=== PATIENT | female | born 1955 | race Caucasian/White ===

== ENCOUNTER 2016-10-27 15:43 | Emergency (ER) | payer MEDICARE ==
[~2016-10-27] VITALS: Ht 142.2 cm; Wt 39.1 kg
[2016-10-27 15:46] VITALS: TEMP 98.1
[2016-10-27] MEDS ORDERED: PREDNISONE 5MG5 MG PO (16:05)
[2016-10-27] MEDS ORDERED: MORPHINE 1515 MG/TAB PO (16:05)
[2016-10-27] MEDS ORDERED: DILANTIN 100MG100 MG PO (16:06)
[2016-10-27] MEDS ORDERED: VENTOLIN0.09 MG IH (16:06)
[2016-10-27] MEDS ORDERED: NORCO 325 MG-51 TAB PO (16:43)
[2016-10-27 18:07] LABS: PH 5 (5-8); SQUAMOUS EPITHELIAL 0-2 /hpf; URINE APPEARANCE Hazy; URINE BACTERIA Rare /hpf; URINE BILIRUBIN Negative (NEGATIVE); URINE BLOOD 3+ (NEGATIVE); URINE COLOR Yellow; URINE GLUCOSE Negative (NEGATIVE); URINE KETONE Negative (NEGATIVE); URINE UROBILINOGEN Negative (NEGATIVE)
[2016-10-27 18:13] VITALS: BP 146/79; PULSE 94
== END 2016-10-27 18:13 | disposition home or self-care (01) ==
LOC: COL.ER 15:43
PROVIDERS: Family Medicine
DX: M54.5 Low back pain (principal); S39.012A Strain of muscle, fascia and tendon of lower back, initial encounter; X50.1XXA Overexertion from prolonged static or awkward postures, initial encounter; X50.9XXA Other and unspecified overexertion or strenuous movements or postures, initial encounter; Y92.009 Unspecified place in unspecified non-institutional (private) residence as the place of occurrence of the external cause; M81.0 Age-related osteoporosis without current pathological fracture; J44.9 Chronic obstructive pulmonary disease, unspecified; R91.8 Other nonspecific abnormal finding of lung field; Z87.891 Personal history of nicotine dependence

== ENCOUNTER 2017-05-09 17:40 | Emergency (ER) | payer MEDICARE ==
[~2017-05-09] VITALS: Ht 142.2 cm; Wt 39.1 kg
[~2017-05-09 17:40] MED LIST: DILANTIN 100MG100 MG PO; MORPHINE 1515 MG/TAB PO; NORCO 325 MG-51 TAB PO; PREDNISONE 5MG5 MG PO; VENTOLIN0.09 MG IH
[2017-05-09 17:43] VITALS: TEMP 99.1
[2017-05-09 18:36] LABS: ADJUSTED CALCIUM 9.3 mg/dL (8.4-10.2); ALANINE AMINOTRANSFERASE 25 U/L (9-52); ALBUMIN 4.2 gm/dL (3.5-5.0); ALKALINE PHOSPHATASE 85 U/L (50-136); ANION GAP 10 mmol/L (7-16); BILIRUBIN,TOTAL 0.6 mg/dL (0.0-1.0); BLOOD UREA NITROGEN 12 mg/dL (7-17); CALCIUM 9.5 mg/dL (8.4-10.2); CARBON DIOXIDE 24 mmol/L (22-30); CHLORIDE 102 mmol/L (98-107); GLUCOSE 77 mg/dL (74-106); POTASSIUM 4.5 mmol/L (3.4-5.0); SODIUM 136 mmol/L (137-145); TOTAL PROTEIN 7.4 gm/dL (6.4-8.2)
[2017-05-09 18:40] LABS: BASO % 0.5 % (0.0-2.0); EOS % 0.4 % (0-4.0); GRAN % 62.4 % (42.2-75.2); HEMATOCRIT 41.7 % (37.0-47.0); HEMOGLOBIN 14.2 g/dl (12.5-16.0); LYMPH # 2.5 (1.2-3.4); LYMPH % 31.8 % (20.0-51.0); MEAN CELL VOLUME 92 fl (80.0-100.0); MEAN CORPUSCULAR HEMOGLOBIN 31 pg (27.0-31.0); MEAN CORPUSCULAR HGB CONC 34 g/dl (33.0-37.0); MEAN PLATELET VOLUME 8.8 fl (7.4-10.4); MONO # 0.4 (0.1-0.6); MONO % 4.6 % (1.7-9.3); PLATELET COUNT 241 K/mm3 (130-400); RED BLOOD COUNT 4.55 M/mm3 (4.10-5.30); REDCELL DISTRIBUTION WIDTH-CV 14.7 % (11.5-14.5)
[2017-05-09 18:49] LABS: PARTIAL THROMBOPLASTIN TIME 29.9 SECONDS (26.0-37.0)
[2017-05-09 18:52] LABS: TROPONIN-I < 0.012 ng/mL (0.000-0.034)
[2017-05-09 19:02] LABS: PROTHROMBIN TIME 11.1 SECONDS (9.7-12.8)
[2017-05-09] MEDS ORDERED: NORCO 325 MG-51 TAB PO (19:40)
[2017-05-09] MEDS ORDERED: PREDNISONE20 MG PO (19:40)
[2017-05-09 19:57] VITALS: BP 116/71; PULSE 87
== END 2017-05-09 19:57 | disposition home or self-care (01) ==
LOC: COL.ER 17:40
PROVIDERS: Emergency Medicine
DX: R07.9 Chest pain, unspecified (principal); M54.14 Radiculopathy, thoracic region; J44.9 Chronic obstructive pulmonary disease, unspecified; G40.909 Epilepsy, unspecified, not intractable, without status epilepticus; M81.0 Age-related osteoporosis without current pathological fracture; Z86.73 Personal history of transient ischemic attack (TIA), and cerebral infarction without residual deficits; F17.200 Nicotine dependence, unspecified, uncomplicated
CPT/HCPCS: J7512; Q9967

== ENCOUNTER 2018-12-05 01:06 | Inpatient (IN) | payer MEDICARE ==
[2018-12-05] VITALS (12 sets, daily range): BP systolic 102–155; BP diastolic 48–77; PULSE 76–98; TEMP 97.2–99.1
[~2018-12-05] VITALS: Ht 142.2 cm; Wt 41.6 kg
[~2018-12-05 01:06] MED LIST changes: +PREDNISONE20 MG PO
[2018-12-05 06:17] LABS: BASO # 0.1 (0.0-0.2); BASO % 0.5 % (0.0-2.0); EOS % 0.3 % (0-4.0); GRAN # 7.2 (1.4-6.5); GRAN % 72.5 % (42.2-75.2); HEMOGLOBIN 10.9 g/dl (12.5-16.0); INR 1.1 (0.8-3.0); LYMPH % 20.3 % (20.0-51.0); MEAN CELL VOLUME 94 fl (80.0-100.0); MEAN CORPUSCULAR HEMOGLOBIN 31 pg (27.0-31.0); MEAN CORPUSCULAR HGB CONC 33 g/dl (33.0-37.0); MEAN PLATELET VOLUME 9.4 fl (7.4-10.4); MONO # 0.6 (0.1-0.6); MONO % 5.9 % (1.7-9.3); PLATELET COUNT 200 K/mm3 (130-400); PROTHROMBIN TIME 12.3 SECONDS (9.7-12.8); RED BLOOD COUNT 3.52 M/mm3 (4.10-5.30); REDCELL DISTRIBUTION WIDTH-CV 15.1 % (11.5-14.5)
[2018-12-05 06:23] LABS: BILIRUBIN,TOTAL 0.5 mg/dL (0.0-1.0); CALCIUM 7.4 mg/dL (8.4-10.2); CREATININE, serum 0.63 mg/dL (0.52-1.25); POTASSIUM 4.3 mmol/L (3.4-5.0); TOTAL PROTEIN 5.8 gm/dL (6.4-8.2)
[2018-12-05 06:30] LABS: PRE ALBUMIN 20.2 mg/dL (17.6-36.0)
--- NOTE | 2018-12-05 06:55 | NUR ---
Patient report given to ENEIDA Vanegas. Patient received IV morphine around 0640. Patient continues to refuse getting a catheter place at this time. No needs observed.
--- NOTE | 2018-12-05 07:40 | NUR ---
Patient IV swollen upon assessment at shift change. New IV started in Right forearm, fluids infusing.
--- NOTE | 2018-12-05 09:18 | NUR ---
Patient is off the floor for surgery. LR hanging to straight tubing. Telemetry ordered but did not place it before going down, notified the tele desk that she is going to surgery. Patient refused to use the bedpan or get a vu catheter placed. Unable to get UA due to that. Ortho and Hospitalist aware. Patient also refused to get cleaned up before surgery, she wouldn't brush her teeth either. Attempted several times, SHAKE CUTTER tried as well. Morphine given this am, she stated it is not helping and continues to rate her pain 10 on a 0-10 scale. No other changes at this time. Call light within reach.
[2018-12-05 11:46] LABS: COLLECTION METHOD CLEAN CATCH
[2018-12-05 12:00] LABS: MUCOUS Present /lpf; PH 5 (5-8); SQUAMOUS EPITHELIAL None Seen /hpf; URINE APPEARANCE Clear; URINE BACTERIA Rare /hpf; URINE BILIRUBIN Negative (NEGATIVE); URINE BLOOD 3+ (NEGATIVE); URINE COLOR Yellow; URINE GLUCOSE Negative (NEGATIVE); URINE KETONE Negative (NEGATIVE); URINE LEUKOCYTE ESTERASE Negative (NEGATIVE); URINE NITRATE Negative (NEGATIVE); URINE PROTEIN(semi-quant) Negative (NEGATIVE); URINE RBC 20-50 /hpf; URINE UROBILINOGEN Negative (NEGATIVE)
[2018-12-05 13:18] LABS: COLLECTION METHOD CATHETER
--- NOTE | 2018-12-05 13:32 | NUR ---
Patient is back from surgery. Has been back since about 1245. She continues to state she is having pain but she is very drowsy and can not stay awake to have a conversation. She removed her oxygen and her oxygen dropped down to 78%. Explained to patient and her family how important it is to keep the oxygen on. Oxygen replaced, saturation is now 93% on 2L/min per NC. Her family is at bedside. Explained importance of her keeping the oxygen on to them and her. No other changes at this time. Call light within reach.
[2018-12-05 13:43] LABS: MUCOUS Present /lpf; PH 5 (5-8); SQUAMOUS EPITHELIAL 0-2 /hpf; URINE APPEARANCE Clear; URINE BACTERIA Rare /hpf; URINE BILIRUBIN Negative (NEGATIVE); URINE BLOOD 3+ (NEGATIVE); URINE COLOR Yellow; URINE GLUCOSE Negative (NEGATIVE); URINE KETONE Negative (NEGATIVE); URINE LEUKOCYTE ESTERASE Negative (NEGATIVE); URINE NITRATE Negative (NEGATIVE); URINE PROTEIN(semi-quant) Negative (NEGATIVE); URINE RBC 20-50 /hpf; URINE UROBILINOGEN Negative (NEGATIVE)
--- NOTE | 2018-12-05 15:49 | NUR ---
Attempted assessment patient very sleepy. Will try again.
--- NOTE | 2018-12-05 16:00 | NUR ---
Patient stated having a lot of pain in her neck. She is still a little drowsy but wakes easily. She was rating her pain at 8 on a 0-10 scale. Gunpowder given for pain. No complaints of nausea. Dressing to right hip is C/D/I. She is refusing ice packs. Vital signs are stable. No other changes at this time. Call light within reach.
[2018-12-05] MEDS ORDERED: CARAFATE 1GM1 G PO (17:11)
--- NOTE | 2018-12-05 18:37 | NUR ---
Patient has been sleeping off and on since getting back from surgery. Her main complaint is of a headache. Explained she had norco which also has tylenol in it and that it should be helping. No other changes at this time. Call light within reach.
[2018-12-06] VITALS (9 sets, daily range): BP systolic 82–112; BP diastolic 48–58; PULSE 82–98; TEMP 97.6–98.9
--- NOTE | 2018-12-06 06:19 | NUR ---
RESTING QUIETLY. NO c/o N/V. NORCO FOR RLE PAIN. PT REFUSING ICE. PT RESISTANT TO ANY MOVEMENT. RLE HAS BEEN ELEVATED ALL NIGHT.
[2018-12-06 06:33] LABS: HEMATOCRIT 29.2 % (37.0-47.0)
[2018-12-06 06:43] LABS: CALCIUM 7.1 mg/dL (8.4-10.2); CREATININE, serum 0.44 mg/dL (0.52-1.25); POTASSIUM 3.7 mmol/L (3.4-5.0)
--- NOTE | 2018-12-06 09:03 | NUR ---
Patient alert and oriented, answers questions appropriately. See assessment. RLE with dressing clean, dry and intact. RLE pulses palpable, neuros intact. Patient refuses any movement of entire body, states "I will hurt if I move". Also refuses IS and CDB. SCDs on but refuses motor to be turned on. Encouraged all post op exercises to be performed. Patient currently has no pain but is fearful of any movement. No other c/o at this time.
--- NOTE | 2018-12-06 11:22 | NUR ---
Patient has refused CDB and IS all morning.
[2018-12-06 13:46] LABS: INR 1.1 (0.8-3.0); PROTHROMBIN TIME 12.3 SECONDS (9.7-12.8)
--- NOTE | 2018-12-06 15:40 | NUR ---
KENDRA and KENDRA student met with patient to discuss discharge planning. Patient lives in [place]. Her PCP is dr Dallas out of [place] and she obtains her medications from [facility]. KENDRA discussed rehab options with patient. She is interested in longterm but would like to talk to her daughters. She would like to be in [place]. KENDRA discussed the hospital swing bed vs [facility]. KENDRA asked if patient would have transport to the hosptial and she reports she has no one that could take her. She would still like to call her daughters. KENDRA and KENDRA student followed up with patient. SHe reports she has talked to her youngest daughter but not the oldest. She is leaning towards [facility] [place]. KENDRA will follow up again and discussed this with nurse.
--- NOTE | 2018-12-06 21:48 | NUR ---
BP rechecked after 1 norco. BP improved 101/48. Second tab norco given. Will continue to assess.
--- NOTE | 2018-12-06 21:52 | NUR ---
Shift assessment complete. Patient awake, in bed. C/o 8/10 pain, generalized. One tab norco given d/t BP 98/53. Will reassess BP before giving 2nd tab. Patient ok with plan. Will continue to monitor.
[2018-12-07] VITALS (7 sets, daily range): BP systolic 85–119; BP diastolic 37–52; PULSE 82–108; TEMP 97.9–100.2
--- NOTE | 2018-12-07 03:53 | NUR ---
Patient sleeping, appears comfortable. Will continue to assess.
--- NOTE | 2018-12-07 05:21 | NUR ---
Patient c/o 5/10 pain. Prn pain medication given, will reassess. Declined hot water for bowel regimen. Declined prunes with breakfast. States, she would like cold prune juice for breakfast. Will notify day shift.
--- NOTE | 2018-12-07 07:02 | NUR ---
Report from Nurys MONIQUE.
[2018-12-07 07:03] LABS: BASO % 0.3 % (0.0-2.0); EOS # 0.1 (0.0-0.7); GRAN # 7.4 (1.4-6.5); GRAN % 72.1 % (42.2-75.2); LYMPH # 2.1 (1.2-3.4); LYMPH % 20.3 % (20.0-51.0); MEAN CELL VOLUME 95 fl (80.0-100.0); MEAN CORPUSCULAR HGB CONC 33 g/dl (33.0-37.0); MEAN PLATELET VOLUME 9.8 fl (7.4-10.4); MONO # 0.6 (0.1-0.6); MONO % 5.9 % (1.7-9.3); PLATELET COUNT 151 K/mm3 (130-400); RED BLOOD COUNT 2.75 M/mm3 (4.10-5.30); REDCELL DISTRIBUTION WIDTH-CV 14.7 % (11.5-14.5)
[2018-12-07 07:04] LABS: HEMATOCRIT 26.1 % (37.0-47.0); HEMOGLOBIN 8.6 g/dl (12.5-16.0); MEAN CORPUSCULAR HEMOGLOBIN 31 pg (27.0-31.0)
[2018-12-07 07:17] LABS: INR 1.1 (0.8-3.0); PROTHROMBIN TIME 12.6 SECONDS (9.7-12.8)
[2018-12-07 07:19] LABS: CALCIUM 7.5 mg/dL (8.4-10.2); CREATININE, serum 0.44 mg/dL (0.52-1.25); POTASSIUM 3.6 mmol/L (3.4-5.0)
--- NOTE | 2018-12-07 09:04 | NUR ---
PT SITTING UP IN BED. ASSESSMENTS COMPLETE, AM MEDS GIVEN PER ORDERS. DRESSINGS TO RIGHT HIP CDI WITH GAUZE AND TEGADERM. ICE INPLACE FOR COMFORT. PT DENIES FURTHER NEEDS AT THIS TIME.
--- NOTE | 2018-12-07 12:05 | NUR ---
KENDRA student met with patient to follow up about post-acute rehab and choosing facilities. The patient states that after talking to her daughter, she would like to go to 1) [facility] in [place] 2) [facility]. KENDRA student presented and explained the patient-choice form. Patient verbalized understanding and signed. KENDRA student provided a copy to patient. KENDRA student contacted Rachna at [facility] and faxed the referral. KENDRA student contacted Kristen at [facility] and faxed the referral. Awaiting their screenings. SW to continue to follow.
--- NOTE | 2018-12-07 13:37 | NUR ---
Initial visit; Patient thanked Milk Tanker Driver for looking in on her and offering to keep her in Milk Tanker Driver's prayers.
--- NOTE | 2018-12-07 14:26 | NUR ---
Rachna from [facility] contacted to notify that they are unable to accept the patient. SW to notify patient and awaiting [facility] screening.
--- NOTE | 2018-12-07 16:16 | NUR ---
Kristen from [facility] called to report they have a flu outbreak and that they can look at accepting patient if she is ok with that. KENDRA and SW student met with patient who reports she does not want to go there with that knowledge. She would like referrals sent to the [facility] in [place]. KENDRA student made referrals. KENDRA will continue to follow.
--- NOTE | 2018-12-07 20:30 | NUR ---
Patient has not been up to void since removal of vu catheter. Assisted patient to [facility], she voids then is assisted 1:1 back to bed. Placed Mepilex dressing to coccyx and sacrum area due to this skin and potential for breakdown. Patient also has prominent spine, no breakdown in skin integrity at this time. Patient has 3 dressings to right hip with gauze and occlusive, D/I. Placed ice pack to incisional area for comfort. Has ROSETTA hose and SCD's on bilateral lower extremities. Connected to IVF at 60cc/hr per hospitalist order. ES Tylenol was given for headache. Drank 100% of nutritional shake.
--- NOTE | 2018-12-07 21:50 | NUR ---
Medicated with Morphine IR 15mg po now for right hip/left ribs and knee pain. Rates /. IVF continue to left FA without redness or swelling.
--- NOTE | 2018-12-08 04:15 | NUR ---
Assisted to [facility] to void, transfers better with 1:1 assist. Tried sitting in recliner, was uncomfortable and returns to bed. IVF infusing to left forearm without redness or swelling.
[2018-12-08 04:21] VITALS: BP 121/55; PULSE 80; TEMP 98.1
--- NOTE | 2018-12-08 05:02 | NUR ---
Medicated with ES Tylenol 1 tab for left rib and rt hip pain.
[2018-12-08 07:09] LABS: BASO % 0.3 % (0.0-2.0); EOS # 0.2 (0.0-0.7); EOS % 1.7 % (0-4.0); GRAN # 7.2 (1.4-6.5); GRAN % 72.7 % (42.2-75.2); LYMPH % 19.9 % (20.0-51.0); MEAN CELL VOLUME 94 fl (80.0-100.0); MEAN CORPUSCULAR HGB CONC 34 g/dl (33.0-37.0); MEAN PLATELET VOLUME 9.5 fl (7.4-10.4); MONO # 0.5 (0.1-0.6); PLATELET COUNT 161 K/mm3 (130-400); RED BLOOD COUNT 2.71 M/mm3 (4.10-5.30); REDCELL DISTRIBUTION WIDTH-CV 14.6 % (11.5-14.5)
[2018-12-08 07:15] LABS: PROTHROMBIN TIME 11.6 SECONDS (9.7-12.8)
[2018-12-08 07:18] LABS: HEMATOCRIT 25.4 % (37.0-47.0); HEMOGLOBIN 8.6 g/dl (12.5-16.0); MEAN CORPUSCULAR HEMOGLOBIN 32 pg (27.0-31.0)
--- NOTE | 2018-12-08 07:24 | NUR ---
REPORT FROM ANGIE MONIQUE.
[2018-12-08 08:02] VITALS: BP 107/46; PULSE 99; TEMP 99
--- NOTE | 2018-12-08 10:31 | NUR ---
DR BERGER AND TEAM ROUNDED ON [place]ATEINT SEE COMPUTER FOR ORDERS. PLAN ON DISCHARGE LATER TODAY IF ACCEPTED TO [facility].
[2018-12-08 11:42] VITALS: BP 105/51; PULSE 95; TEMP 98.3
[2018-12-08] MEDS ORDERED: OSCAL 500 TAB500 MG PO (11:53)
[2018-12-08] MEDS ORDERED: NICODERM C7 MG/PATCH TD (11:53)
[2018-12-08] MEDS ORDERED: ASPI325T6 PO (11:53)
[2018-12-08] MEDS ORDERED: DUO-KAPS1 CAP PO (11:54)
[2018-12-08] MEDS ORDERED: VITAMIN C500 MG PO (11:54)
--- NOTE | 2018-12-08 13:57 | NUR ---
Patient accepted by [facility]. SW met with patient to discuss options and part b copay for doc appointments. She is agreeable to this and would like to talk with her daughter.
--- NOTE | 2018-12-08 14:50 | NUR ---
Patient would like to go to [facility] for skilled. KENDRA called [facility] and cancelled referral and left message for Moose at [facility]. Ronal at [facility] notified and transport arranged for 3pm. SW met with patient to present IM and verbally discuss the contents. Patient was agreeable and signed. Copy given to patient and original placed on chart. Patient is DC today to [facility] for correction. No other discharge needs identified.
--- NOTE | 2018-12-08 17:04 | NUR ---
report called to [facility].
--- NOTE | 2018-12-08 17:05 | NUR ---
pt transfered to [facility].
[2018-12-09] MEDS ORDERED: MORPHINE 1515 MG/TAB PO (09:16)
== END 2018-12-08 16:10 | DRG 481 ==
LOC: SURG 01:06
PROVIDERS: Nurse Practitioner; Orthopaedic Surgery; Physician Assistant; ADMIT Family Medicine
PROC: 0QS636Z Reposition Right Upper Femur with Intramedullary Internal Fixation Device, Percutaneous Approach (ICD-10-PCS; principal; 2018-12-05 10:30)
DX: S72.141A Displaced intertrochanteric fracture of right femur, initial encounter for closed fracture (principal); M84.48XA Pathological fracture, other site, initial encounter for fracture; W01.0XXA Fall on same level from slipping, tripping and stumbling without subsequent striking against object, initial encounter; J44.9 Chronic obstructive pulmonary disease, unspecified; I69.398 Other sequelae of cerebral infarction; R56.9 Unspecified convulsions; F17.200 Nicotine dependence, unspecified, uncomplicated; M06.9 Rheumatoid arthritis, unspecified; M81.0 Age-related osteoporosis without current pathological fracture; Z88.5 Allergy status to narcotic agent; Z88.0 Allergy status to penicillin; Z88.2 Allergy status to sulfonamides; Z91.040 Latex allergy status; J84.10 Pulmonary fibrosis, unspecified
CPT/HCPCS: OP; 99232-AI; 99233-AI; 99239; A4314; C1713; J0690; J2250; J2270; J2704; J3010; J7120; J7512